=== PATIENT | female | born 1975 | race Caucasian/White ===

== ENCOUNTER → 2021-10-31 | Day surgery (SDC) | payer BC ==
--- NOTE | 2021-10-31 11:23 | RAD REPORT ---
EXAM DESCRIPTION: US - Guided FNA Non Breast - 10/31/2021 10:59 am CLINICAL HISTORY: E04.1 COMPARISON: No comparisons FINDINGS: Preoperative diagnosis: Right thyroid nodule. Post operative diagnosis: Same. Conscious Sedation: None Fluoroscopy time: None Contrast used: None Estimated blood loss: Minimal Specimens:3 fine-needle aspirates The right aspect of the neck was prepped and draped. Lidocaine was administered. Three fine-needle as pirates were obtained under ultrasound guidance. No complications. IMPRESSION: Technically successful ultrasound-guided fine-needle aspiration of a right thyroid nodul e. No immediate complications.
== END ==
LOC: FNA 08:00
PROVIDERS: ATTEND Internal Medicine
PROC: 0GBH3ZX Excision of Right Thyroid Gland Lobe, Percutaneous Approach, Diagnostic (ICD-10-PCS; principal; 2021-10-31)
DX: E04.1 Nontoxic single thyroid nodule (principal)
CPT/HCPCS: 88162

== ENCOUNTER 2022-07-18 14:29 | Inpatient (IN) | payer BC, OTHER ==
--- OUTSIDE RECORDS SUMMARY | 2022-07-18 14:33 | XMS REPORT | Continuity of Care Document ---
:1975 Author Organization [facility] t Address [address] [place] [address] Care Team Providers Name Role Phone No, Pcp [facility] Primary Care Physician Unavailable OLGA MARTINEZ Attending Clinician Unavailable ANYA BRAY Attending Clinician Unavailable Gerson Attending Clinician Unavailable OLGA MARTINEZ Admitting Clinician Unavailable Gerson Admitting Clinician Unavailable Payers Payer Name Policy Type Policy Number Effective Date Expiration Date S geena 0451 [id number] 2020 00:00:00 2021 00: 00:00 0165 [id number] 2021 00:00:00 2021 00:00 :00 Problems This patient has no known problems. Allergies, Adverse Reactions, Alerts Allergy Allergy Status Severity Reaction(s) Onset Inactive Treating Comm ents Source Name Type Date Date Clinician MORPHINE Allergy Active 2020-[address] [facility] SULFA Allergy Active 2020-[address] [facility] ([facility] MIDE 00:00: Medical ANTIBIOT 00 Center ICS) Morphine Propensi Active 2020-[address] [facility] [address] [facility] adverse 00:00: Medical reaction 00 Center s Sulfa Propensi Active 2020-[address] [facility] [address] (Sulfona ty [facility] mide adverse 00:00: Medical Antibiot reaction 00 Center ics) s Social History Social Habit Start Date Stop Date Quantity Comments Source History SDOH [facility] Alcohol Std Drinks [facility]ica [facility] Center History SDOH [facility] Alcohol Binge Medical [facility] Tobacco use and 2021-03-02 2021-03-02 [address] [facility] exposure 00:00[facility]00 00:00:00 non-user Medical Center Alcohol intake 2021-03-02 2021-03-[address] [facility] 00:00:00 00:00:00 non-drinker Medical Cente r (finding) History SDOH 2021-03-02 2021-03-[address] [facility] Alcohol Frequency 00:00:00 00:00:00 [facility] Center Sex Assigned At [address] [facility] 00:00:00 00:00:00 [facility] Center Smoking Status Start Date Stop Date Source [facility] Medications This patient has no known medications. Vital Signs Vital Name Observation Time Observation Value Comments Source WEIGHT 2021-03-02 16:34:00 100 kg HEIGHT 2021-03-02 16:34:00 175.3 cm Procedures This patient has no known procedures. Plan of Care Planned Activity Planned Date Details Comments Source Future Scheduled 2022-11-[address] [facility] Test 00:00:00 (Season Ended) [code = [facility] INFLUENZA VACCINE (Season Ended)] Future Scheduled 2022-03-[address] [facility] Test 00:00:00 (12+) [code = Medical Center DEPRESSION SCREENING (12+)] Future Scheduled 2019-05-30 Lipid panel (procedure) [facility] Test 00:00:00 [code = 93400002] Medical Ce nter Future Scheduled 1995-05-30 Screening for malignant [facility] Test 00:00:00 neoplasm of cervix Medical C enter (procedure) [code = 301110271] Future Scheduled 1993 DTAP/TDAP/TD VACCINES [facility] Test 00:00:00 (1 - Tdap) [code = Medical C enter DTAP/TDAP/TD VACCINES (1 - Tdap)] Future Scheduled 1992 HEPATITIS C SCREENING [facility] 00:00:00 [code = HEPATITIS C Medical Center SCREENING] Future Scheduled [address] [facility] Test 00:00:00 Counseling and Medical Cente r Screening (12+) [code = Tobacco Cessation Counseling and Screening (12+)] Future Scheduled 1975 COVID-19 VACCINE (#1) [facility] 00:00:00 [code = COVID-[address] VACCINE (#1)] Future Scheduled 1974 CT Colonography (combo) [facility] Test 00:00:00 [code = CT Colonography [facility] (combo)] Future Scheduled 1974 Screening for malignant [facility] Test 00:00:00 neoplasm of colon Medical Ce nter (procedure) [code = 789055694] Future Scheduled 1974 Screening for malignant [facility] Test 00:00:00 neoplasm of colon Medical Ce nter (procedure) [code = 380673430] Future Scheduled 1974 Screening for malignant [facility] Test 00:00:00 neoplasm of colon Medical Ce nter (procedure) [code = 833730397] Future Scheduled 1974 Screening for malignant [facility] Test 00:00:00 neoplasm of colon Medical Ce nter (procedure) [code = 124167525] Future Scheduled 1975 Sigmoidoscopy [code = [facility] Test 00:00:00 Sigmoidoscopy] Medical Cente r Encounters Start End Encounter Admission Attending Care Care Encounter Source Date/Time Date/Time Type Type Clinicians Facility Department ID 2021-10-19 2021-10-19 [place] [id number] [facility] 11:47:00 11:47:00 [facility] 2021-03-02 2021-03-02 Emergency ER ASA, [facility] Emergency [id number] [facility] 16:57:00 18:01:00 CWANZ 2020-11-17 2020-11-17 Outpatient Corkran_T VFP VFP [id number] [facility] 04:41:00 04:41:00 [id number] Family Pract[facility] e Results Test Description Test Time Test Comments Results Result Sourc e Comments RAD, CHEST, 1 2021-02-03 Reason for VIEW, NON DEPT 9 exam:->SyncopeReaso 17:31:00 n for [facility] exam:->dizzyIs the [facility] patient CENTERName: VINNIE ?->NoShould JOSE LAURENT : this be performed 1975 Sex: at the bedside?->No F FI NAL REPORT Chest, one view History: Syncope and dizziness Comparison: none Findings:Clear lungs. Normal size heart. No pleural effusion or pneumothorax. Impression:Unremarkab le examination of the chest. Signed: Brett Olvera Verified Date/Time: 03/02/2021 17:31:59 , BRAIN, 2021-02-03 No IV WITHOUT CONTRAST 9 contrastReason for 17:24:00 exam:->SyncopeReaso CHI n for [facility] exam:->dizzyIs the CENTERName: JOSE Avila : ?->NoWhat 1975 Sex: is the patient's F sedation requirement?->No FI Sedation NAL REPORT CT, BRAIN, WITHOUT CONTRAST CLINICAL INDICATION: Unlisted Reason for ExamSyncopedizzy COMPARISON: None TECHNIQUE: Noncontrast axial CT imaging of the brain and skull. DOSE REDUCTION: Dose modulation, iterative reconstruction, and/or weight-based adjustment of the mA/kV was utilized to reduce the radiation dose to as low as reasonably achievable. FINDINGS:No intracranial hemorrhage, midline shift or mass effect. Midline structures are normally developed. Scattered foci of hypoattenuation are present throughout the periventricular and subcortical white matter, and, although nonspecific by imaging, statistically represent mild chronic microvascular ischemic changes in this age group.No hydrocephalus. Orbits are within normal limits. No obstructive paranasal sinus disease. IMPRESSION: No acute intracranial findings If there is persistent clinical concern for intracranial pathology, MR examination is recommended for further characterization. Signed: [facility] Verified Date/Time: 03/02/2021 17:24:08
[2022-07-18 14:59] LABS: Absolute Lymphocytes (CBC) 4.2 K/uL (0.7-4.9); Hematocrit 38.5 % (36.0-45.0); Lymphocytes % 36.8 % (15.3-44.8); MCV 80.7 fL (80-100); MPV 7.5 fL (7.6-11.3); RBC Red Blood Cell Count 4.77 M/uL (3.86-4.86)
[2022-07-18] MEDS ORDERED: FENTANYL CITR 100 MCG/2 ML ONE ×2 (15:01→16:49)
[2022-07-18] MEDS ORDERED: ONDANSETRON 4 MG/2 ML VIAL ONE ×2 (15:01→20:15)
[2022-07-18 15:15] LABS: Albumin 3.5 g/dL (3.4-5.0); Bilirubin Total 0.3 mg/dL (0.2-1.0); Potassium 3.5 mEq/L (3.5-5.1); Protein, Total 7.6 g/dL (6.4-8.2)
[2022-07-18] MEDS ORDERED: NA CHLORIDE 0.9% 500 ML ONE (15:29)
[2022-07-18] MEDS ORDERED: IBUPROFEN 400 MG TAB ONE (15:29)
[2022-07-18] MEDS ORDERED: FORMULATION-R RECTAL 57GM PR ONE (16:15)
--- NOTE | 2022-07-18 16:55 | RAD REPORT ---
EXAM DESCRIPTION: CTAbdomen Pelvis W Contrast - 07/18/2022 4:46 pm CLINICAL HISTORY: Abdominal pain. rectal bleeding;Abd pain COMPARISON: No comparisons TECHNIQUE: Biphasic CT imaging of the abdomen and pelvis was performed with 100 ml non-ionic IV cont rast. All CT scans are performed using dose optimization technique as appropriate and may include automated exposure control or mA/KV adjustment according to patient size. FINDINGS: The lung bases are clear.Cholecystectomy clips. The liver, spleen, pancreas, adrenal glands are within normal limits. Small stones are present in the calices of both kidneys. No hydronephrosis. No bowel obstruction, free air, free fluid or abscess. Mild sigmoid diverticulosis coli without diver ticulitis. The appendix is normal. No evidence of significant lymphadenopathy. No suspicious bony findings. IMPRESSION: Small calculi in both kidneys likely present without hydronephrosis. Mild sigmoid diverticulosis coli without diverticulitis.
--- NOTE | 2022-07-18 17:21 | ER ---
Nurse's Notes [facility] Name: Glenna Gonzalez Age: 47 yrs Sex: Female : 1975 Arrival Date: 07/18/2022 Time: 14:29 Bed 7 Private MD: Diagnosis: GI Bleed/ Gastrointestinal hemorrhage, unspecified;Other hemorrhoids-Prolapsed;Diverticulosis of intestine, part unspecified, without perforation or abscess with bleeding Presentation: 07/18 14:34 Chief complaint: Patient states: Rectal bleeding for 4 days but today it was much nj1 worse. Pt states there was nothing but blood when she went to use the restroom today. Complains of severe lower abdominal pain that radiates to lower back. Coronavirus screen: Vaccine status: Patient reports being unvaccinated. Ebola Screen: Patient denies travel to an Ebola-affected area in the 21 days before illness onset. 14:34 Method Of Arrival: Ambulatory [facility] 14:34 Initial Sepsis Screen: Does the patient meet any 2 criteria? HR > 90 bpm. No. Patient's [facility] initial sepsis screen is negative. Does the patient have a suspected source of infection? No. Patient's initial sepsis screen is negative. Risk Assessment: Do you want to hurt yourself or someone else? Patient reports no desire to harm self or others. Onset of symptoms was July 14, 2022. 14:34 Acuity: JAIR 3 nj1 Triage Assessment: 15:00 General: Appears in no apparent distress. uncomfortable, Behavior is cooperative, db anxious. Pain: Complains of pain in buttocks and pelvis. Neuro: Level of Consciousness is awake, alert, obeys commands, Oriented to person, place, time, situation. Historical: - Allergies: 14:48 Sulfa (Sulfonamide Antibiotics); nj1 14:48 Morphine; nj1 - PMHx: 14:48 Fibromyalgia; IBS; Depressive disorder; Anxiety; nj1 - PSHx: 14:48 Hysterectomy; nj1 - Immunization history:: Client reports having NOT received the Covid vaccine. - Social history:: Smoking status: Patient denies any tobacco usage or history of. - Family history:: not pertinent. - Hospitalizations: : No recent hospitalization is reported. Screenin:36 [facility] ED Fall Risk Assessment (Adult) History of falling in the last 3 months, db including since admission No falls in past 3 months (0 pts) Confusion or Disorientation No (0 pts) Intoxicated or Sedated No (0 pts) Impaired Gait No (0 pts) Mobility Assist Device Used No (0 pt) Altered Elimination No (0 pt) Score/Fall Risk Level 0 - 2 = Low Risk Oriented to surroundings, Maintained a safe environment. Abuse screen: Denies threats or abuse. Denies injuries from another. Nutritional screening: No deficits noted. Tuberculosis screening: No symptoms or risk factors identified. Assessment: 15:42 Reassessment: Patient appears in no apparent distress at this time. Patient and/or db family updated on plan of care and expected duration. Pain level reassessed. Patient is alert, oriented x 3, equal unlabored respirations, skin warm/dry/pink. complains of rectal pain and bloody stools. Pain: Complains of pain in rectum. Neuro: Level of Consciousness is awake, alert, obeys commands, Oriented to person, place, time, situation. GI: Abdomen is flat, non-distended. 16:00 Reassessment: Patient requested physician to look at rectum because feels pain like has db rectal prolapse. Patient has large hemorrhoids that are painful. 18:39 Reassessment: patient ambulatory to restroom. db 20:04 Reassessment: No changes from previously documented assessment. Patient and/or family ll3 updated on plan of care and expected duration. Pain level reassessed. Patient is alert, oriented x 3, equal unlabored respirations, skin warm/dry/pink. C/o rectal pain 09/11, PAULO Barrios notified. Vital Signs: 14:34 BP 146 / 87; Pulse 108; Resp 24; Temp 99.5; Pulse Ox 98% on R/A; Weight 112.04 kg; nj1 Height 5 ft. 9 in. ; Pain 10/10; 14:50 BP 126 / 85; Pulse 97; Resp 16; Pulse Ox 97% on R/A; db 15:00 BP 123 / 80; Pulse 96; Resp 16; Pulse Ox 98% on R/A; db 16:53 BP 126 / 78; Pulse 76; Resp 16 S; Pulse Ox 98% on R/A; db 20:05 BP 127 / 84; Pulse 69; Resp 14; Pulse Ox 96% on R/A; ll3 21:00 BP 130 / 80; Pulse 69; Resp 20; Pulse Ox 97% on R/A; ll3 22:00 BP 136 / 91; Pulse 76; Resp 20; Pulse Ox 97% on R/A; ll3 14:34 Body Mass Index 36.48 (112.04 kg, 175.26 cm) nj1 14:34 Pain Scale: Adult wa1 ED Course: 14:30 Patient arrived in ED. rg4 14:36 Gilberto Butler MD is Attending Physician. rn 14:43 Belkys Alexis RN is Primary Nurse. db 14:43 Inserted saline lock: 20 gauge in right antecubital area, using aseptic technique. db Blood collected. 14:48 Triage completed. nj1 14:50 Arm band placed on. nj1 15:43 Patient has correct armband on for positive identification. Bed in low position. Call db light in reach. Side rails up X 1. 16:48 CT Abd/Pelvis - IV Contrast Only In Process Unspecified. EDMS 17:17 Cash Verma is Hospitalizing Provider. rn 22:29 No provider procedures requiring assistance completed. Patient admitted, IV remains in ll3 place. Administered Medications: 14:55 Drug: fentaNYL (PF) IVP 50 mcg Route: IVP; Site: right antecubital; db 15:15 Follow up: Response: No adverse reaction db 14:55 Drug: Ondansetron IVP 4 mg Route: IVP; Site: right antecubital; db 15:15 Follow up: Response: No adverse reaction db 15:25 Drug: NS 0.9% IV 500 ml Route: IV; Rate: bolus; Site: right antecubital; db 16:30 Follow up: Response: No adverse reaction; IV Status: Completed infusion; IV Intake: ll3 500ml 15:25 Drug: Ibuprofen PO 800 mg Route: PO; db 17:12 Follow up: Response: No adverse reaction db 16:25 Drug: Pramoxine-Mineral Oil-Zinc ME Ointment 1 inches Route: ME; db 17:12 Follow up: Response: No adverse reaction db 17:00 Drug: fentaNYL (PF) IVP 50 mcg Route: IVP; Site: right antecubital; db 17:12 Follow up: Response: No adverse reaction db 20:14 Drug: HYDROmorphone IVP 0.5 mg Route: IVP; Site: right antecubital; ll3 22:29 Follow up: Response: No adverse reaction; Marked relief of symptoms ll3 20:14 Drug: Ondansetron IVP 4 mg Route: IVP; Site: right antecubital; ll3 22:29 Follow up: Response: No adverse reaction ll3 Medication: 22:28 VIS not applicable for this client. ll3 Intake: 16:30 IV: 500ml; Total: 500ml. ll3 Outcome: 17:21 Decision to Hospitalize by Provider. rn 22:29 Admitted to Med/surg accompanied by nurse, via stretcher, room 216. ll3 22:29 Condition: stable 22:29 Instructed on the need for admit, Demonstrated understanding of instructions. 22:31 Patient left the ED. 3 Signatures: Dispatcher [employer] EDMS Gilberto Butler MD MD rn Garcia, Rubi rg4 Nely Estrella RN RN ll3 Belkys Alexis RN RN db Marely Bermudez RN RN nj1 Corrections: (The following items were deleted from the chart) 20:06 20:04 Reassessment: No changes from previously documented assessment. Patient and/or ll3 family updated on plan of care and expected duration. Pain level reassessed. Patient is alert, oriented x 3, equal unlabored respirations, skin warm/dry/pink. C/o rectal pain 09/11, Ashwini Rothman PSYCHOLOGIST [employer] notified ll3
--- NOTE | 2022-07-18 17:22 | EDPHYS ---
Physician Documentation [facility] Name: Glenna Gonzalez Age: 47 yrs Sex: Female : 1975 Arrival Date: 07/18/2022 Time: 14:29 Bed 7 Private MD: ED Physician Gilberto Butler HPI: 07/18 15:10 This 47 yrs old Female presents to ER via Ambulatory with complaints of Bloody Stools. rn 15:10 The patient presents with abdominal pain in the left lower quadrant. Onset: The rn symptoms/episode began/occurred 4 day(s) ago. The symptoms radiate to back. Associated signs and symptoms: Pertinent positives: blood in stools, Pertinent negatives: nausea and vomiting, fever. The symptoms are described as crampy, sharp. Modifying factors: The symptoms are alleviated by nothing, the symptoms are aggravated by touching the area. Severity of pain: At its worst the pain was moderate in the emergency department the pain is unchanged. The patient has experienced similar episodes in the past. The patient has not recently seen a physician. Historical: - Allergies: 14:48 Sulfa (Sulfonamide Antibiotics); nj1 14:48 Morphine; nj1 - PMHx: 14:48 Fibromyalgia; IBS; Depressive disorder; Anxiety; nj1 - PSHx: 14:48 Hysterectomy; nj1 - Immunization history:: Client reports having NOT received the Covid vaccine. - Social history:: Smoking status: Patient denies any tobacco usage or history of. - Family history:: not pertinent. - Hospitalizations: : No recent hospitalization is reported. ROS: 15:10 Constitutional: Negative for fever, chills, and weight loss, Cardiovascular: Negative rn for chest pain, palpitations, and edema, Respiratory: Negative for shortness of breath, cough, wheezing, and pleuritic chest pain, Abdomen/GI: + lower abd pain and rectal bleeding Back: + low back pain : Negative for injury, bleeding, discharge, and swelling, MS/Extremity: Negative for injury and deformity, Skin: Negative for injury, rash, and discoloration, Neuro: Negative for headache, numbness, tingling, and seizure. Exam: 15:10 Constitutional: This is a well developed, well nourished patient who is awake, alert, rn appears anxious, tearful, hyperventilating Head/Face: Normocephalic, atraumatic. Cardiovascular: Tachycardic, regular. No pulse deficits. Respiratory: Mild tachypnea, no retractions Abdomen/GI: Soft, + mild LLQ tenderness, no rebound, multiple prolapsed hemorrhoids that are tender. Skin: Warm, dry MS/ Extremity: Pulses equal, no cyanosis Neuro: Awake and alert, GCS 15 15:14 ECG was reviewed by the Attending Physician. rn Vital Signs: 14:34 BP 146 / 87; Pulse 108; Resp 24; Temp 99.5; Pulse Ox 98% on R/A; Weight 112.04 kg; nj1 Height 5 ft. 9 in. ; Pain 10/10; 14:50 BP 126 / 85; Pulse 97; Resp 16; Pulse Ox 97% on R/A; db 15:00 BP 123 / 80; Pulse 96; Resp 16; Pulse Ox 98% on R/A; db 16:53 BP 126 / 78; Pulse 76; Resp 16 S; Pulse Ox 98% on R/A; db 20:05 BP 127 / 84; Pulse 69; Resp 14; Pulse Ox 96% on R/A; ll3 21:00 BP 130 / 80; Pulse 69; Resp 20; Pulse Ox 97% on R/A; ll3 22:00 BP 136 / 91; Pulse 76; Resp 20; Pulse Ox 97% on R/A; ll3 14:34 Body Mass Index 36.48 (112.04 kg, 175.26 cm) [facility] 14:34 Pain Scale: Adult nj MDM: 14:36 Patient medically screened. rn 17:12 Differential diagnosis: appendicitis, bowel obstruction, diverticulitis, gastritis, rn non-specific abd pain, Ureterolithiasis, prolapsed hemorrhoids, thrombosed hemorrhoids, lower GI bleed. Data reviewed: vital signs, nurses notes, lab test result(s), radiologic studies, CT scan, and as a result, I will discharge patient. Consideration of Admission/Observation Patient was admitted/placed on observation. Escalation of care including admission/observation considered. Management of patient was discussed with the following: Hospitalist: . Counseling: I had a detailed discussion with the patient and/or guardian regarding: the historical points, exam findings, and any diagnostic results supporting the discharge/admit diagnosis, lab results, radiology results, the need for further work-up and treatment in the hospital. Response to treatment: There is no appreciated change of the patient's symptoms at this time, and as a result, I will admit patient. ED course: Patient without acute findings in blood, normal hemoglobin, diverticulosis on CT, prolapsed hemorrhoids, uncontrolled pain, will admit to hospitalist service for GI/surgical consult. . 07/18 14:46 Order name: CBC with Diff; Complete Time: 15:08 rn 07/18 14:46 Order name: CMP; Complete Time: 15:44 rn 07/18 14:46 Order name: Lipase; Complete Time: 15:44 rn 07/18 14:46 Order name: Type And Screen; Complete Time: 15:44 rn 07/18 20:27 Order name: UAM sb4 07/18 21:09 Order name: Urinalysis W/Microscopic; Complete Time: 21:14 EDMS 07/18 14:46 Order name: CT Abd/Pelvis - IV Contrast Only; Complete Time: 16:56 rn 07/18 14:46 Order name: EKG; Complete Time: 14:47 rn 07/18 14:46 Order name: IV Saline Lock; Complete Time: 14:49 rn 07/18 14:46 Order name: Labs collected and sent; Complete Time: 14:49 rn 07/18 14:46 Order name: EKG - Nurse/Tech; Complete Time: 15:15 rn EC:14 Rate is 89 beats/min. Rhythm is regular. QRS [place] is Normal. RI interval is normal. QRS rn interval is normal. QT interval is normal. No Q waves. T waves are Normal. No ST changes noted. Clinical impression: Normal ECG. Interpreted by me. Reviewed by me. Administered Medications: 14:55 Drug: fentaNYL (PF) IVP 50 mcg Route: IVP; Site: right antecubital; db 15:15 Follow up: Response: No adverse reaction db 14:55 Drug: Ondansetron IVP 4 mg Route: IVP; Site: right antecubital; db 15:15 Follow up: Response: No adverse reaction db 15:25 Drug: NS 0.9% IV 500 ml Route: IV; Rate: bolus; Site: right antecubital; db 16:30 Follow up: Response: No adverse reaction; IV Status: Completed infusion; IV Intake: ll3 500ml 15:25 Drug: Ibuprofen PO 800 mg Route: PO; db 17:12 Follow up: Response: No adverse reaction db 16:25 Drug: Pramoxine-Mineral Oil-Zinc RI Ointment 1 inches Route: RI; db 17:12 Follow up: Response: No adverse reaction db 17:00 Drug: fentaNYL (PF) IVP 50 mcg Route: IVP; Site: right antecubital; db 17:12 Follow up: Response: No adverse reaction db 20:14 Drug: HYDROmorphone IVP 0.5 mg Route: IVP; Site: right antecubital; ll3 22:29 Follow up: Response: No adverse reaction; Marked relief of symptoms ll3 20:14 Drug: Ondansetron IVP 4 mg Route: IVP; Site: right antecubital; ll3 22:29 Follow up: Response: No adverse reaction ll3 Disposition Summary: 07/18/22 17:21 Hospitalization Ordered Hospitalization Status: Observation rn Provider: Csah Verma rn Location: Telemetry/MedSurg (observation) rn Condition: Stable rn Problem: new rn Symptoms: are unchanged rn Bed/Room Type: Standard rn Room Assignment: 216(07/18/22 21:39) Diagnosis - GI Bleed/ Gastrointestinal hemorrhage, unspecified rn - Other hemorrhoids - Prolapsed rn - Diverticulosis of intestine, part unspecified, without perforation or abscess with rn bleeding Forms: - Medication Reconciliation Form rn - SBAR form rn Signatures: Dispatcher [employer] EDMS Gilberto Butler MD MD rn Garcia, Cindy RN RN Nely Estrella RN RN ll3 Belkys Alexis, RN RN Deana Berrios PA-C PA-C sb4 Marely Bermudez, RN RN nj1 Corrections: (The following items were deleted from the chart) 16:22 15:10 Constitutional: This is a well developed, well nourished patient who is awake, rn alert, appears anxious, tearful, hyperventilating Head/Face: Normocephalic, atraumatic. Cardiovascular: Tachycardic, regular. No pulse deficits. Respiratory: Mild tachypnea, no retractions Abdomen/GI: Soft, + mild LLQ tenderness, no rebound Skin: Warm, dry MS/ Extremity: Pulses equal, no cyanosis Neuro: Awake and alert, GCS 15 rn 21:39 17:21 rn cg 21:39 21:39 214 cg cg
[2022-07-18] MEDS ORDERED: HYDROMORPHONE HCL 0.5 MG/0.5 ML INJ ONE (20:15)
--- NOTE | 2022-07-18 20:16 | P.HP ---
Certification for Inpatient Patient admitted to: Inpatient With expected LOS: <2 Midnights Patient will require the following post-hospital care: None Practitioner: I am a practitioner with admitting privileges, knowledge of patient current condition, hospital course, and medical plan of care. Services: Services provided to patient in accordance with Admission requirements found in Title 42 Section 412.3 of the Code of Federal Regulations Patient History Date of Service: 07/18/22 Primary Care Provider: Linda Reason for admission: Lower GI Bleed History of Present Illness: Ms. Gonzalez is a 47 year old female with past medical history of IBS, fibromyalgia, depression, and anxiety who presented to the emergency department with complaints of rectal bleeding. She states that she has had rectal bleeding on and off for a few years now but today she states her bowel movements have consisted of copious amounts of bright red blood. She states she had a colonoscopy 3 years ago that revealed some polyps but was otherwise normal. Her workup in the ED was unremarkable, H&H within normal limits. CT abdomen pelvis showed "Small calculi in both kidneys likely present without hydronephrosis. Mild sigmoid diverticulosis coli without diverticulitis." Rectal exam revealed prolapsed external hemorrhoids. Her abdominal pain and rectal pain persisted despite IV narcotics. She has remained hemodynamically stable. ED provider wishes to admit patient for further management. Home medications list reviewed: Yes - Past Medical/Surgical History Diabetic: No -: IBS -: Fibromyalgia -: Depression/Anxiety -: Cholecystectomy -: Hysterectomy Psychosocial/ Personal History: Patient is . - Family History Family History: Reviewed- Non-Contributory - Social History Smoking Status: Never smoker Alcohol use: Yes CD- Drugs: No Caffeine use: Yes Place of Residence: Home Review of Systems Gastrointestinal: Abdominal Pain, As per HPI Physical Examination - Vital Signs Temperature: 99.5 F Blood Pressure: 127/84 Pulse: 69 Respirations: 14 Pulse Ox (%): 96 - Physical Exam General: Alert, In no apparent distress HEENT: Atraumatic, EOMI, Sclerae nonicteric Neck: Supple, 2+ carotid pulse no bruit, No LAD, Without JVD or thyroid abnormality Respiratory: Clear to auscultation bilaterally, Normal air movement Cardiovascular: Regular rate/rhythm, Normal S1 S2 Gastrointestinal: Normal bowel sounds, No tenderness Musculoskeletal: No tenderness Integumentary: No rashes Neurological: Normal speech, Normal affect Rectal: Tenderness, Other (prolapsed external hemorrhoids) - Studies Laboratory Data (last 24 hrs) 07/18/22 14:43: Sodium 135 L, Potassium 3.5, BUN 8, Creatinine 0.86, Glucose 115 H, Total Bilirubin 0.3, AST 13 L, ALT 24, Alkaline Phosphatase 84, Lipase 33 07/18/22 14:43: WBC 11.40 H, Hgb 12.8, Hct 38.5, Plt Count 430 H Assessment and Plan - Problems (Diagnosis) (1) Lower GI bleed Current Visit: Yes Status: Acute (2) External hemorrhoid, bleeding Current Visit: Yes Status: Acute (3) Diverticulosis Current Visit: Yes Status: Acute (4) Fibromyalgia Current Visit: Yes Status: Chronic (5) IBS (irritable bowel syndrome) Current Visit: Yes Status: Chronic Qualifiers: Irritable bowel syndrome type: without diarrhea Qualified Code(s): K58.9 - Irritable bowel syndrome without diarrhea - Plan Patient is admitted for further management of lower GI bleeding. Bleeding likely secondary to diverticulosis, no diverticulitis present per CT. Serial H&Hs. Within normal limits at this time. Transfuse as necessary. GI consult for possible colonoscopy. Pain control as needed. IV hydration. Hemodynamically stable at this time. Reconcile and continue home medications. SCDs for VTE prophylaxis. Full code. Discharge Plan: Home Plan to discharge in: Greater than 2 days - Advance Directives Does patient have a Living Will: No Does patient have a Durable POA for Healthcare: No - Code Status/Comfort Care Code Status Assessed: Yes Code Status: Full Code Physician Review: Patient Assessed, Agree with Above Assessment and Plan Critical Care: No Time Spent Managing Pts Care (In Minutes): 50
[2022-07-18 21:03] LABS: Urine Bacteria <20 /HPF (<20); Urine Bilirubin NEGATIVE (Negative); Urine Blood Trace (Negative); Urine Clarity Clear (Clear); Urine Color Light-Yellow (Yellow); Urine Glucose NEGATIVE (Negative); Urine Protein NEGATIVE (Negative); Urine Urobilinogen Normal (Normal); Urine pH 5.5 (5.0-7.0)
[2022-07-18] MEDS ORDERED: SODIUM CHLORIDE 0.9% 10ML INJ IV PRN (22:25)
[2022-07-18] MEDS ORDERED: ONDANSETRON 4 MG/2 ML VIAL IV PRN (22:25)
[2022-07-18 23:11] LABS: Hematocrit 34.7 % (36.0-45.0); MCV 80.9 fL (80-100); RBC Red Blood Cell Count 4.29 M/uL (3.86-4.86)
[2022-07-18] MEDS: NA CHLORIDE 0.9% 1,000 ML IV SCH (23:30)
[2022-07-19] MEDS: HYDROMORPHONE HCL 0.5 MG/0.5 ML INJ IV PRN ×5 (00:21→23:01)
[2022-07-19] MEDS: PANTOPRAZOLE 40 MG INJ IVP SCH ×3 (00:23→20:43)
[2022-07-19] MEDS: TRAZODONE 50 MG TABLET PO PRN ×2 (00:54→23:00)
[2022-07-19 04:01] LABS: Hematocrit 33.7 % (36.0-45.0); MPV 7.3 fL (7.6-11.3); RBC Red Blood Cell Count 4.17 M/uL (3.86-4.86)
[2022-07-19 04:04] LABS: Protime INR 1.06
[2022-07-19 04:13] VITALS: BMI 36.4
[2022-07-19 04:43] LABS: Phosphorus 4.1 mg/dL (2.5-4.9); Potassium 3.4 mEq/L (3.5-5.1); Thyroid Stimulating Hormone 2.68 uIU/mL (0.358-3.740)
[2022-07-19] MEDS: NA CHLORIDE 0.9% 1,000 ML IV SCH ×2 (08:46→18:33)
[2022-07-19] MEDS ORDERED: POTASSIUM CL SA 10 MEQ TAB PO ONE (09:00)
[2022-07-19] MEDS: DICYCLOMINE HCL 10 MG CAP PO SCH ×2 (09:00→20:43)
[2022-07-19] MEDS: BUPROPION HCL XL 150 MG TAB PO SCH (09:00)
--- NOTE | 2022-07-19 11:46 | EKG ---
Test Date: 2022-07-18 Test Time: 15:11:49 Inspector Missile: ANEL MEASUREMENT RESULTS: Intervals: Rate: 89 AL: 160 QRSD: 72 QT: 358 QTc: 435 [place]: P: 30 AL: 160 QRS: 21 T: 46 INTERPRETIVE STATEMENTS: Normal sinus rhythm Normal ECG No previous ECG available for comparison Electronically Signed On 07-19-22 11:44:45 CDT by Hiram Owen
[2022-07-19 12:37] LABS: Hematocrit 35.3 % (36.0-45.0); MCV 81.4 fL (80-100); MPV 7.2 fL (7.6-11.3); RBC Red Blood Cell Count 4.33 M/uL (3.86-4.86)
[2022-07-19] MEDS ORDERED: FLEET ENEMA ADULT PR ONE (13:36)
--- NOTE | 2022-07-19 14:31 | P.PN ---
Subjective Date of Service: 07/19/22 Primary Care Provider: Linda Chief Complaint: Lower GI Bleed Patient had another bloody bowel movement this morning. Noted rectal mucosal protrusion. Patient also complaining of abdominal cramps. No nausea or vomiting. Physical Examination - Vital Signs Temperature: 97.5 F Blood Pressure: 121/61 Pulse: 75 Respirations: 18 Pulse Ox (%): 98 - Physical Exam General: Alert, In no apparent distress, Oriented x3 HEENT: Mucous membr. moist/pink Neck: JVD not distended Respiratory: Clear to auscultation bilaterally, Normal air movement Cardiovascular: No edema, Regular rate/rhythm, Normal S1 S2 Gastrointestinal: Soft and benign, Non-distended, No tenderness Musculoskeletal: No swelling, No warmth Integumentary: No rashes, No cyanosis Neurological: Normal strength at 5/5 x4 extr, Cranial nerves 3-12 intact Lymphatics: No axilla or inguinal lymphadenopathy Rectal: Other (Rectal prolapse.) - Studies Laboratory Data (last 24 hrs) 07/18/22 14:43: Sodium 135 L, Potassium 3.5, BUN 8, Creatinine 0.86, Glucose 115 H, Total Bilirubin 0.3, AST 13 L, ALT 24, Alkaline Phosphatase 84, Lipase 33 07/18/22 14:43: WBC 11.40 H, Hgb 12.8, Hct 38.5, Plt Count 430 H Assessment And Plan - Current Problems (Diagnosis) (1) Rectal mucosa prolapse Current Visit: Yes Status: Acute (2) Diverticulosis Current Visit: Yes Status: Acute (3) External hemorrhoid, bleeding Current Visit: Yes Status: Acute (4) Lower GI bleed Current Visit: Yes Status: Acute (5) Acute blood loss anemia Current Visit: Yes Status: Acute - Plan General surgery consulted to evaluate. I also spoke to GI Dr. Martinez. Dr. Reyes is planning EGD today. Continue to monitor H&H and transfuse as needed for hemoglobin less than 7. Pain management with IV hydromorphone as needed. Keep n.p.o.
[2022-07-19] MEDS ORDERED: propofoL 200 MG/20 ML VIAL IV ONE (15:44)
[2022-07-19] MEDS: ACETAMINOPHEN 500 MG TAB PO PRN (17:28)
[2022-07-19 18:57] VITALS: O2SAT 99
--- NOTE | 2022-07-20 00:25 | CON ---
Date of Consultation: 07/19/2022 Brief History Of Present Illness: The patient is a 47-year-old female with a past medical history of IBS, fibromyalgia, depression, anxiety, and rectal bleeding, who presented with ongoing re ctal bleeding. She states that she has had this on and off for a few years, but got progressively wo rse. She noted that she had copious amounts of bright red blood per rectum and had a colonoscopy 3 y ears ago, which only showed polyps, otherwise. She has noted that with bowel movement, she has signi ficant protrusion of perianal masses/hemorrhoids, which she is unable to push back in. They have bee n protruding for some time and it is associated with tenderness, pain, and bleeding. Past Medical History: IBS, fibromyalgia, depression, anxiety. Past Surgical History: Cholecystectomy, hysterectomy. Social History: She is . She denies smoking, drinks alcohol recreationally. Denies recreati onal drug use. Review of Systems: Ten-point review of systems other than HPI, denies currently. Physical Examination: Vital Signs: At the time of my examination, temperature 99.5, blood pressure 127/84, pulse 69, respi ratory rate 14, pulse ox 96% on room air. General: She is awake, alert, and oriented. Psychiatric: She is appropriate and conversive. She is obese. Neck: Supple without JVD. Chest: Normal expansion and excursion. Cardiovascular: Regular rate and rhythm. Pulmonary: Clear to auscultation bilaterally. Abdomen: Soft, nontender, nondistended. No rebound. No guarding. No focal peritonitis. Rectal: Focused examination of the rectal area, she has a large grade 4 hemorrhoids as well as external anal hemorrhoids, which are large and irritated and have evidence of blood clot and recent sequelae of ble eding. They are not currently actively bleeding. The patient cannot tolerate a digital rectal exami nation due to pain. Skin: Essentially unremarkable. Laboratory Examination: Revealed a white blood cell count of 9.2, hemoglobin is 11.7, hematocrit 35. 3, platelet count was 314. Her sodium 136, potassium 3.4, chloride 106, carbon dioxide is 28, BUN 8, creatinine 0.8, glucose is 115, phosphorus 4.1, magnesium 2.0. AST was 13 on admission, 24 was her ALT, alkaline phosphatase is 84. She had imaging, which included a CT of the abdomen and pelvis on 0 07/18, which was officially read as small calculi in both kidneys likely present without hydronephrosi s, mild sigmoid diverticulosis coli without diverticulitis. Assessment And Plan: This is a 47-year-old woman who presents with signs and symptoms of large grade 4 hemorrhoids as well as external anal hemorrhoids with recent sequelae of bleeding. 1.Continue medical management. 2.Patient is due to have endoscopy with Dr. Martinez to rule out other causes of possible gastrointe stinal bleeding. 3.We will await results of endoscopy report. If they are nondiagnostic for a source of gastrointest inal bleeding, likely we will proceed with exam under anesthesia and hemorrhoidectomy. I have explai akin the risks, benefits, and alternatives of exam under anesthesia and hemorrhoidectomy including, bu t not limited to bleeding, infection, damage to surrounding area, incontinence, which can be permanen t, significant chronic pain to the area, need for ongoing surgery and procedures, complications relat ed to surgery in the perioperative period including blood clots, stroke, heart attack, unforeseen ane sthesia related complications, and other unforeseen complications of surgery. The patient agrees to proceed as indicated. JONATHAN/BRUCE Voice ID: [id number] Report ID: [id number]
[2022-07-20] MEDS: HYDROMORPHONE HCL 0.5 MG/0.5 ML INJ IV PRN ×3 (03:01→13:07)
[2022-07-20 03:17] LABS: Absolute Lymphocytes (CBC) 2.6 K/uL (0.7-4.9); Hematocrit 35.3 % (36.0-45.0); Lymphocytes % 38.6 % (15.3-44.8); MCV 80.7 fL (80-100); RBC Red Blood Cell Count 4.37 M/uL (3.86-4.86)
[2022-07-20 03:45] LABS: Potassium 3.5 mEq/L (3.5-5.1)
[2022-07-20] MEDS: NA CHLORIDE 0.9% 1,000 ML IV SCH ×2 (04:25→14:25)
[2022-07-20] MEDS: ACETAMINOPHEN 500 MG TAB PO PRN (04:49)
[2022-07-20] MEDS ORDERED: HYDROCORTISONE ACETATE 25MG SUPP PR PRN (07:50)
[2022-07-20] MEDS: DICYCLOMINE HCL 10 MG CAP PO SCH (07:51)
[2022-07-20] MEDS: BUPROPION HCL XL 150 MG TAB PO SCH (07:54)
[2022-07-20] MEDS: PANTOPRAZOLE 40 MG INJ IVP SCH (08:05)
[2022-07-20 08:57] VITALS: BP 112/70; TEMP 98.3
[2022-07-20] MEDS ORDERED: LIDOCAINE HCL JELLY 2% 6 ML SYRINGE TOP SCH (09:00)
[2022-07-20] MEDS ORDERED: POTASSIUM CL SA 10 MEQ TAB PO ONE (09:00)
--- NOTE | 2022-07-20 13:55 | P.DS ---
Admission Date: 07/18/22 Discharge Date: 07/20/22 Primary Care Provider: Linda Disposition: ROUTINE DISCHARGE Discharge Condition: FAIR Reason for Admission: Lower GI Bleed - Problems (1) Rectal mucosa prolapse Current Visit: Yes Status: Acute (2) Diverticulosis Current Visit: Yes Status: Acute (3) External hemorrhoid, bleeding Current Visit: Yes Status: Acute (4) Lower GI bleed Current Visit: Yes Status: Acute (5) Acute blood loss anemia Current Visit: Yes Status: Acute Brief History of Present Illness: Ms. Gonzalez is a 47 year old female with past medical history of IBS, fibromyalgia, depression, and anxiety who presented to the emergency department with complaints of rectal bleeding. She states that she has had rectal bleeding on and off for a few years now but today she states her bowel movements have consisted of copious amounts of bright red blood. She states she had a colonoscopy 3 years ago that revealed some polyps but was otherwise normal. Her workup in the ED was unremarkable, H&H within normal limits. CT abdomen pelvis showed "Small calculi in both kidneys likely present without hydronephrosis. Mild sigmoid diverticulosis coli without diverticulitis." Rectal exam revealed prolapsed external hemorrhoids. Her abdominal pain and rectal pain persisted despite IV narcotics. She has remained hemodynamically stable. Patient was admitted for further management. Hospital Course: Patient admitted to the medical floor. Patient's hemoglobin dropped slightly but remained stable. Patient was seen in consultation by GI Dr. Martinez who performed EGD and partial colonoscopy. Patient found to have mild gastritis. Colonoscopy revealed large internal hemorrhoid. Dr. Martinez recommended surgical consultation. Dr. Irvin consulted to evaluate patient and recommended surgery. Anesthesia evaluated patient and recommended to hold off surgery for at least 1 week due to the fact that patient took phentermine 3 days ago. Patient hemoglobin has been stable, no more bleeding since colonoscopy. Vitals have been stable. Dr. Irvin of is planning surgery for the hemorrhoid as outpatient. Patient is therefore discharged to follow-up with Dr. Irvin as outpatient. Vital Signs/Physical Exam: Temp Pulse Resp BP Pulse Ox 98.3 F 80 16 112/70 98 07/20/22 08:00 07/20/22 08:00 07/20/22 08:00 07/20/22 08:00 07/20/22 08:00 General: Alert, In no apparent distress, Oriented x3 HEENT: Mucous membr. moist/pink Neck: Supple, JVD not distended Respiratory: Clear to auscultation bilaterally, Normal air movement Cardiovascular: No edema, Regular rate/rhythm, Normal S1 S2 Gastrointestinal: Normal bowel sounds, Soft and benign, Non-distended Musculoskeletal: No swelling Integumentary: No rashes Neurological: Normal strength at 5/5 x4 extr Laboratory Data at Discharge: WBC 6.80 thou/uL (4.3-10.9) 07/20/22 02:56 Hgb Cancelled 07/20/22 05:15 Hct 35.3 % (36.0-45.0) L 07/20/22 02:56 Plt Count 299 thou/uL (152-406) 07/20/22 02:56 PT 11.7 SECONDS (9.5-12.5) 07/19/22 02:42 INR 1.06 07/19/22 02:42 APTT 29.9 SECONDS (24.3-36.9) 07/19/22 02:42 Sodium 138 mEq/L (136-145) 07/20/22 02:56 Potassium 3.5 mEq/L (3.5-5.1) 07/20/22 02:56 BUN 4 mg/dL (7-18) L 07/20/22 02:56 Creatinine 0.58 mg/dL (0.55-1.02) 07/20/22 02:56 Glucose 102 mg/dL (74-106) 07/20/22 02:56 Phosphorus 4.1 mg/dL (2.5-4.9) 07/19/22 02:42 Magnesium 2.0 mg/dL (1.6-2.4) 07/19/22 02:42 Total Bilirubin 0.3 mg/dL (0.2-1.0) 07/18/22 14:43 AST 13 U/L (15-37) L 07/18/22 14:43 ALT 24 U/L (13-56) 07/18/22 14:43 Alkaline Phosphatase 84 U/L (45-117) 07/18/22 14:43 Triglycerides 161 mg/dL (<150) H 07/19/22 02:42 Cholesterol 213 mg/dL (<200) H 07/19/22 02:42 HDL Cholesterol 40 mg/dL (40-60) 07/19/22 02:42 Cholesterol/HDL Ratio 5.33 07/19/22 02:42 Lipase 33 U/L (13-75) 07/18/22 14:43 Home Medications: Bupropion *Xl* [Wellbutrin XL*] 1 tab PO DAILY 07/18/22 Dicyclomine [Bentyl*] 10 mg PO BID 07/18/22 Trazodone [Desyrel*] 100 mg PO BEDTIME PRN 07/19/22 Hydrocodone 7.5/APAP 325 [[place] 7.5/325 mg] 1 tab PO Q6H PRN #20 tab 07/20/22 Hydrocort Acetate Suppos [Anucort-Hc Suppository*] 25 mg AL BID PRN #30 supp 07/20/22 lidocaine HCL [Glydo] 6 ml TOP BID #20 syr 07/20/22 New Medications: Hydrocort Acetate Suppos [Anucort-Hc Suppository*] 25 mg AL BID PRN #30 supp PRN Reason: Hemorrhoids lidocaine HCL [Glydo] 6 ml TOP BID #20 syr Hydrocodone 7.5/APAP 325 [[place] 7.5/325 mg] 1 tab PO Q6H PRN #20 tab PRN Reason: Pain Diet: AHA Activity: Ad geneva Followup: NONE,NONE [Primary Care Provider] - Time spent managing pt's care (in minutes): 38
== END 2022-07-20 15:55 | disposition home or self-care (01) | DRG 394 ==
LOC: ER 14:29 → ERHOLD 20:05 → 2ND 21:45
PROVIDERS: ADMIT Internal Medicine; ATTEND Internal Medicine
PROC: 0DB68ZX Excision of Stomach, Via Natural or Artificial Opening Endoscopic, Diagnostic (ICD-10-PCS; 2022-07-19)
PROC: 0DJD8ZZ Inspection of Lower Intestinal Tract, Via Natural or Artificial Opening Endoscopic (ICD-10-PCS; 2022-07-19)
PROC: 0DB98ZX Excision of Duodenum, Via Natural or Artificial Opening Endoscopic, Diagnostic (ICD-10-PCS; principal; 2022-07-19 09:00)
PROC: 0DB78ZX Excision of Stomach, Pylorus, Via Natural or Artificial Opening Endoscopic, Diagnostic (ICD-10-PCS; 2022-07-19 09:00)
DX: K64.8 Other hemorrhoids (principal); D62 Acute posthemorrhagic anemia; K64.4 Residual hemorrhoidal skin tags; K29.70 Gastritis, unspecified, without bleeding; K31.7 Polyp of stomach and duodenum; K58.9 Irritable bowel syndrome, unspecified; K62.3 Rectal prolapse; K31.819 Angiodysplasia of stomach and duodenum without bleeding; M79.7 Fibromyalgia; K57.30 Diverticulosis of large intestine without perforation or abscess without bleeding; Z88.5 Allergy status to narcotic agent; Z88.1 Allergy status to other antibiotic agents; Z90.49 Acquired absence of other specified parts of digestive tract; Z28.310 Unvaccinated for COVID-19; Z90.710 Acquired absence of both cervix and uterus
CPT/HCPCS: 36415; 74177; 80048; 80053; 80061; 81001; 83690; 83735; 84100; 84132; 84443; 85025; 85027; 85610; 85730; 86850; 86900; 86901; 88305; 88312; 93005; 96361; 96374; 96375; 99285; C9113; J1170; J2405; J2704; J3010; J7030; J7040; Q9967

== ENCOUNTER 2022-07-25 09:36 | Day surgery (SDC) | payer SELFPAY ==
[2022-07-25] MEDS ORDERED: Ringers Lactate 1,000 ML IV ONE (10:14)
[2022-07-25] MEDS ORDERED: PIPER TAZO 3.375 GM in NA CHLORIDE 0.9% 100 ML IV ONE (10:15)
[2022-07-25] MEDS ORDERED: propofoL 200 MG/20 ML VIAL IV ONE ×2 (10:47→11:51)
[2022-07-25] MEDS ORDERED: LIDOCAINE 2% MPF 5 ML VIAL ONE (10:48)
[2022-07-25] MEDS ORDERED: FENTANYL CITR 100 MCG/2 ML ONE (10:48)
[2022-07-25] MEDS ORDERED: KETOROLAC 30 MG/ML INJ ONE (10:48)
[2022-07-25] MEDS ORDERED: MIDAZOLAM HCL 2 MG/2 ML INJ ONE (10:48)
[2022-07-25] MEDS ORDERED: ONDANSETRON 4 MG/2 ML VIAL ONE (10:48)
[2022-07-25] MEDS ORDERED: dexAMETHasone 10 MG/ML VIAL ONE (10:48)
[2022-07-25] MEDS ORDERED: LIDOCAINE HCL/EPINEPHRINE 20 ML MDV ONE (11:07)
[2022-07-25] MEDS ORDERED: BUPIVACAINE 0.25% PF 10 ML VIAL ONE (11:07)
[2022-07-25] MEDS ORDERED: KETAMINE HCL IN 0.9 % NACL 50 MG/5 ML SYRINGE IV ONE (12:02)
[2022-07-25] MEDS ORDERED: HYDROMORPHONE HCL 1 MG/ML INJ ONE (12:04)
[2022-07-25] MEDS ORDERED: NS 0.9% VIAL 10 ML ONE ×2 (12:50→12:59)
--- NOTE | 2022-07-25 12:52 | P.OP ---
Preoperative diagnosis: Large Internal / External Anal Hemorrhoids Postoperative diagnosis: Large Internal / External Anal Hemorrhoids Primary procedure: Exam under anesthesia Secondary procedure: Excision of Large Internal / External Anal Hemorrhoids Anesthesia: GETA + Local Estimated blood loss: <10cc Specimen: hemorrhoids Findings: Hemorrhoids of 3 columns RA, RP, LL Complications: None Transferred to: Recovery Room Condition: Good
[2022-07-25] MEDS ORDERED: Phenylephrine HCl 10 MG/ML 1 ML VIAL ONE (12:59)
[2022-07-25] MEDS: HYDROMORPHONE HCL 1 MG/ML INJ ONE ×4 (13:18→13:45)
[2022-07-25] MEDS ORDERED: MEPERIDINE HCL 25 MG/ML SYR ONE (13:26)
--- NOTE | 2022-07-25 13:44 | OP ---
Date of Procedure: 07/25/2022 Surgeon: Thor Irvin MD, Preoperative Diagnosis: Large internal/external hemorrhoids. Postoperative Diagnosis: Large internal/external hemorrhoids. Procedures Performed: 1.Exam under anesthesia. 2.Excision of large internal/external anal hemorrhoids. Anesthesia: General endotracheal plus local with 0.25% Marcaine without epinephrine and 1% lidocaine with epinephrine. Estimated Blood Loss: Less than 10 cc. Specimen: Hemorrhoids. Findings: Hemorrhoids were present in all 3 columns of the right anterior, right posterior, and left lateral hemorrhoidal columns were all involved with large bulky hemorrhoids, which were protruding s ignificantly and irreducible. Complications: None. Disposition: The patient was transferred to the recovery room in good condition. Procedure In Detail: After informed consent was obtained, the patient was brought to the operating r oom, prepped and draped in the usual sterile fashion in lithotomy position after adequate anesthesia was achieved. I anesthetized the area circumferentially around using 1% lidocaine with epinephrine c ircumferentially around the area. Large visible hemorrhoids were evident at this point. I performed sequential dilatation of the anal canal using small endoscopes to a medium-sized anoscope at this po int. I circumferentially inspected the entire rectal vault. There was some stool in the vault, whic h was removed at this point. The area was irrigated with solution of Betadine and saline. At this p oint, I inspected the area once again. I scored the area of the right anterior, right posterior, and left lateral hemorrhoidal columns using electrocautery. I then dissected down to separate the tissu es and preserved sphincter muscle throughout the procedure. I then after used a combinati on of electrocautery and minimal sharp dissection and blunt dissection and LigaSure device to separat e and remove the hemorrhoids from the columns as described above using the LigaSure device. Good hem ostasis was achieved at this point. I then removed the hemorrhoids and sent off for pathologic exami nation from the 3 columns as described. Good hemostasis was achieved without any additional hemostat ic maneuvers required. I then used 3-0 chromic suture to reapproximate some of the mucosa to near th e external anal orifice circumferentially around in an interrupted fashion. I then irrigated the are a copiously and placed an Ultrafoam sponge into the anal canal at this point and the area was cleanse d. The patient tolerated the procedure well without evidence of complication and transferred to PACU in good condition. All counts were correct at the end of the case. JONATHAN/BRUCE Voice ID: [id number] Report ID: [id number]
[2022-07-25] MEDS: FENTANYL CITR 100 MCG/2 ML ONE ×2 (14:00→14:07)
[2022-07-25 14:03] VITALS: O2SAT 99
[2022-07-25 14:32] VITALS: BP 118/65; TEMP 96.8
[2022-07-25] MEDS ORDERED: HYDROCODONE/APAP 10/325 TAB ONE (14:57)
== END 2022-07-25 15:23 | disposition home or self-care (01) ==
LOC: OR 09:36
PROVIDERS: ATTEND Surgery
PROC: 06BY4ZC Excision of Hemorrhoidal Plexus, Percutaneous Endoscopic Approach (ICD-10-PCS; principal; 2022-07-25 11:30)
DX: K64.3 Fourth degree hemorrhoids (principal)
CPT/HCPCS: 88304; A4216; J1100; J1170; J2001; J2175; J2250; J2370; J2405; J2543; J2704; J3010; J7120